=== PATIENT | female | born 1995 | race Caucasian/White ===

== ENCOUNTER 2016-10-04 20:07 | Emergency (ER) | payer OTHER ==
--- NOTE | 2016-10-04 21:24 | ED CLINICAL REPORT ---
Clinical Report - Physicians/Mid Levels [facility] [address] [address] 10/04/2016 20:08 Patient: KEESHA CAN Time Seen: 21:00; initial patient contact. Arrived- By private vehicle. Historian- patient. HISTORY OF PRESENT ILLNESS Chief Complaint: SORE THROAT. This started about 3 days ago and is still present (persistent). It was gradual in onset. Pain described as mild. The patient has had a sore throat, nasal congestion and a nasal discharge. Similar symptoms previously: None. Recent medical care: Not recently seen/assessed. REVIEW OF SYSTEMS No fever, chest pain, nausea or vomiting. She has had nasal congestion, a runny nose, a cough, difficulty breathing and sinus pain. All systems otherwise negative, except as recorded above. PAST HISTORY Negative. Surgeries: . Medications: Thera M Plus Oral. Allergies: Codeine.(swelling). SOCIAL HISTORY Never smoker. No alcohol use or drug use. ADDITIONAL NOTES The nursing notes have been reviewed. PHYSICAL EXAM Vital Signs: 10/04/2016 20:19 BP: 135/79. HR: 96. RR: 12. O2 saturation: 99%. Temp: 98.9 F. Pain level now: 3/10. Have been reviewed as normal. Appearance: Alert. No acute distress. Head: Tenderness present to percussion/palpation of the sinuses: mild right and left frontal tenderness, maxillary tenderness. Normal external inspection. ENT: Ears normal. Nose normal. Mild generalized pharyngeal erythema with right tonsillar swelling and left tonsillar swelling. No trismus present. The mucous membranes are not dry. Neck: No adenopathy. CVS: Normal heart rate and rhythm. Heart sounds normal. Respiratory: No respiratory distress. Breath sounds normal. Skin: No rash. Neuro: Oriented X 3. PROGRESS AND PROCEDURES Course of Care: DuoNeb nebulizer treatment (1 unit dose) given. Physical exam findings are improved. Symptoms much better. Disposition: Discharged home in good and improved condition. Condition: good. CLINICAL IMPRESSION Acute maxillary and frontal sinusitis INSTRUCTIONS Do not work tomorrow. Your Current Medications: CONTINUE TAKING THE FOLLOWING MEDICATIONS: Thera M Plus Oral. Prescription Medications: Albuterol HFA oral inhaler: inhale 2 puffs every 4 hours as needed for wheezing, difficulty breathing or shortness of breath. Dispense one (1) unit. No refill. Azithromycin 500 mg tablets: take 1 orally every day for 2 days. No refills. (1st dose given in ED, start on 10/05/16) Follow-up: Follow up with your doctor in about three days. Call for an appointment. Screening today revealed the patient's blood pressure to be in the pre-hypertensive range. The patient should follow up with a primary care provider for blood pressure management. (Electronically signed by Favio Mckeon Dr. 10/05/2016 4:01)
--- NOTE | 2016-10-04 21:24 | ED CLINICAL REPORT ---
Clinical Report - Physicians/Mid Levels [facility] [address] [place] [place] [address] 10/04/2016 20:08 Patient: KEESHA CAN Time Seen: 21:00; initial patient contact. Arrived- By private vehicle. Historian- patient. HISTORY OF PRESENT ILLNESS Chief Complaint: SORE THROAT. This started about 3 days ago and is still present (persistent). It was gradual in onset. Pain described as mild. The patient has had a sore throat, nasal congestion and a nasal discharge. Similar symptoms previously: None. Recent medical care: Not recently seen/assessed. REVIEW OF SYSTEMS No fever, chest pain, nausea or vomiting. She has had nasal congestion, a runny nose, a cough, difficulty breathing and sinus pain. All systems otherwise negative, except as recorded above. PAST HISTORY Negative. Surgeries: . Medications: Thera M Plus Oral. Allergies: Codeine.(swelling). SOCIAL HISTORY Never smoker. No alcohol use or drug use. ADDITIONAL NOTES The nursing notes have been reviewed. PHYSICAL EXAM Vital Signs: 10/04/2016 20:19 BP: 135/79. HR: 96. RR: 12. O2 saturation: 99%. Temp: 98.9 F. Pain level now: 3/10. Have been reviewed as normal. Appearance: Alert. No acute distress. Head: Tenderness present to percussion/palpation of the sinuses: mild right and left frontal tenderness, maxillary tenderness. Normal external inspection. ENT: Ears normal. Nose normal. Mild generalized pharyngeal erythema with right tonsillar swelling and left tonsillar swelling. No trismus present. The mucous membranes are not dry. Neck: No adenopathy. CVS: Normal heart rate and rhythm. Heart sounds normal. Respiratory: No respiratory distress. Breath sounds normal. Skin: No rash. Neuro: Oriented X 3. PROGRESS AND PROCEDURES Course of Care: DuoNeb nebulizer treatment (1 unit dose) given. Physical exam findings are improved. Symptoms much better. Disposition: Discharged home in good and improved condition. Condition: good. CLINICAL IMPRESSION Acute maxillary and frontal sinusitis INSTRUCTIONS Do not work tomorrow. Your Current Medications: CONTINUE TAKING THE FOLLOWING MEDICATIONS: Thera M Plus Oral. Prescription Medications: Albuterol HFA oral inhaler: inhale 2 puffs every 4 hours as needed for wheezing, difficulty breathing or shortness of breath. Dispense one (1) unit. No refill. Azithromycin 500 mg tablets: take 1 orally every day for 2 days. No refills. (1st dose given in ED, start on 10/05/16) Follow-up: Follow up with your doctor in about three days. Call for an appointment. Screening today revealed the patient's blood pressure to be in the pre-hypertensive range. The patient should follow up with a primary care provider for blood pressure management. (Electronically signed by Favio Mckeon Dr. 10/05/2016 4:01)
--- NOTE | 2016-10-04 21:24 | ED ORDER SUMMARY ---
..... Patient: KEESHA CAN OrderSheet [facility] VisitID: [id number] [place] [address] 21y, F Registration Date/Time: 10/04/2016 ORDER SHEET Weight: 86.1 kg (stated) Allergies: Codeine GENERAL ORDERS: RT Evaluation Stat (20:30 10/04/2016 JQuivey R.N. per protocol) (20:49 [facility] MEDICATION ORDERS: DuoNeb Neb Tx 1 unit dose (NOW) (20:31 10/04/2016 JQuivey R.N. per protocol) (20:51 JQuivey R.N.) Azithromycin PO 500 mg (NOW) (21:24 10/04/2016 Grant Jaimes) (Ack 21:32 JQuivey R.N.) (21:38 JQuivey R.N.) IV FLUIDS: ORDER SHEET NOTES: [Electronically signed by Darshan Jones R.N. (22:43 10/04/2016)] [Electronically signed by Favio Mckeon Dr. (04:01 10/05/2016)] [Electronically locked/signed by Darshan Jones R.N. (22:43 10/04/2016)]
--- NOTE | 2016-10-04 21:24 | ED NURSING NOTES ---
Clinical Report - Nurses [facility] [address] [place] [address] 10/04/2016 20:08 Patient: KEESHA CAN TRIAGE Triage time 20:20. Acuity: LEVEL 3. Chief Complaint: SORE THROAT. --20:26 Sheriff Dominguez R.N. 20:19 10/04/16. BP: 135/79. HR: 96. RR: 12. O2 saturation: 99%. Temp: 98.9 F. Pain level now: 07/18. --20:26 Sheriff Dominguez R.N. Weight: 86.1 kg stated. Height/Length: 69 inches Per Patient. BMI: 28.1. --20:19 Sheriff Dominguez R.N. Medications Thera M Plus Oral. --20:24 Sheriff Dominguez R.N. Allergies Codeine.(swelling) --20:24 Sheriff Dominguez R.N. History Arrived by private vehicle. Historian: patient. Accompanied by mother. This started yesterday. ( Productive cough with thick greenish secretions for 3 day. Sore throat followed yesterday. Wheezy and short of breath.). SURGERY HX: has been performed twice. SOCIAL HX: Never smoker. No alcohol use or drug use. FALL RISK ASSESSMENT: Fall risk assessment completed. No fall risk identified. NUTRITIONAL RISK ASSESSMENT: The nutritional risk assessment revealed no deficiencies. FUNCTIONAL ASSESSMENT: Functional assessment: no impairments noted. LEARNING NEEDS ASSESSMENT: The learning needs assessment revealed no barriers. SKIN INTEGRITY ASSESSMENT: Skin integrity risk assessment completed. No skin integrity risk identified. --20:26 Sheriff Dominguez R.N. PROBLEMS: None. --20:25 Sheriff Dominguez R.N. Interventions ID band on patient. --20:26 Sheriff Dominguez R.N. PHYSICAL ASSESSMENT Ambulatory to room. GENERAL / NEURO / PSYCH: Alert. Oriented X 4. Appears in no acute distress. Appears in pain. HEENT: Mucous membranes are pink. RESPIRATORY: Respirations not labored. SKIN: Skin is warm and dry. --20:26 Sheriff Dominguez R.N. NURSING PROGRESS NOTES Head of bed elevated. Two patient identifiers checked. Call light placed in reach. Side rails up x 2. Bed placed in lowest position. Brakes of bed on. --20:26 Sheriff Dominguez R.N. 20:34 10/04/2016 Duoneb (Ipratropium-Albuterol) Neb TX 1 unit dose given. Given by the respiratory therapist. Allergies verified and confirmed 5 rights. --20:52 Darshan Jones R.N. <<STRICKEN ENTRY-- 20:44 10/04/2016 Duoneb (Ipratropium-Albuterol) Neb TX 1 unit dose given. Given by the respiratory therapist. Allergies verified and confirmed 5 rights. --20:51 Darshan Jones R.N. --END STRIKE>> Correction. --20:52 Darshan Jones R.N. 21:34 10/04/2016 Azithromycin PO 500 mg given. Allergies verified and confirmed 5 rights. --21:38 Darshan Jones R.N. 21:37. The patient is calm and resting quietly. GENERAL / NEURO / PSYCH: Alert. Oriented X 4. RESPIRATORY: No respiratory distress. SKIN: Skin is warm and dry. --21:39 Darshan Jones R.N. DISPOSITION / DISCHARGE Departure time: 21:39. Condition at departure: stable. No learning barriers present. Discharge instructions provided and reviewed with the patient. Reviewed medication(s) side effects, precautions, dosing and course information. Prescription(s) given to the patient. Patient verbalized understanding. Written instructions provided in [place]. The patient was discharged home and accompanied by parent. She left the Emergency Department ambulatory and via private vehicle. Parent driving. FALL RISK ASSESSMENT: Fall risk assessment completed. No fall risk identified. --21:39 Darshan Jones R.N. 21:34 10/04/16. BP: 108/61. HR: 96. RR: 18. O2 saturation: 96% on room air. Pain level now: 05/20. --21:39 Darshan Jones R.N. Locked/Released at 10/04/2016 22:43 by Darshan Jones R.N.
--- NOTE | 2016-10-04 21:24 | ED ORDER SUMMARY ---
..... Patient: KEESHA CAN OrderSheet [facility] VisitID: [id number] [place] [address] 21y, F Registration Date/Time: 10/04/2016 ORDER SHEET Weight: 86.1 kg (stated) Allergies: Codeine GENERAL ORDERS: RT Evaluation Stat (20:30 10/04/2016 JQuivey R.N. per protocol) (20:[facility] MEDICATION ORDERS: DuoNeb Neb Tx 1 unit dose (NOW) (20:31 10/04/2016 JQuivey R.N. per protocol) (20:51 JQuivey R.N.) Azithromycin PO 500 mg (NOW) (21:24 10/04/2016 Grant Jaimes) (Ack 21:32 JQuivey R.N.) (21:38 JQuivey R.N.) IV FLUIDS: ORDER SHEET NOTES: [Electronically signed by Darshan Jones R.N. (22:43 10/04/2016)] [Electronically signed by Favio Mckeon Dr. (04:01 10/05/2016)] [Electronically locked/signed by Darshan Jones R.N. (22:43 10/04/2016)]
--- NOTE | 2016-10-05 04:01 | ED DISCHARGE INSTRUCTIONS ---
Patient: KEESHA CAN General Instructions [facility] VisitID: [id number] [place] [address] 21y, F Registration Date/Time: 10/04/2016 Acute maxillary and frontal sinusitis INSTRUCTIONS Do not work tomorrow. Your Current Medications: CONTINUE TAKING THE FOLLOWING MEDICATIONS: Thera M Plus Oral. Prescription Medications: Albuterol HFA oral inhaler: inhale 2 puffs every 4 hours as needed for wheezing, difficulty breathing or shortness of breath. Dispense one (1) unit. No refill. Azithromycin 500 mg tablets: take 1 orally every day for 2 days. No refills. (1st dose given in ED, start on 10/05/16) Follow-up: Follow up with your doctor in about three days. Call for an appointment. Screening today revealed the patient's blood pressure to be in the pre-hypertensive range. The patient should follow up with a primary care provider for blood pressure management. ADDITIONAL INFORMATION Sinusitis [Abx Tx] The sinuses are air-filled spaces within the bones of the face. They connect to the inside of the nose. Sinusitis is an inflammation of the tissue lining the sinus cavity. Sinus inflammation can occur during a cold or hay-fever (allergies to pollens and other particles in the air) and cause symptoms of sinus congestion and fullness. A sinus infection causes fever, headache and facial pain. There is usually green or yellow drainage from the nose or into the back of the throat (post-nasal drip). Antibiotics are prescribed to treat this condition. Home Care: Drink plenty of water, hot tea, and other liquids to stay well hydrated. This thins the mucus and promotes sinus drainage. Apply heat to the painful areas of the face. Use a towel soaked in hot water. Or, advisory software engineer the shower and direct the hot spray onto your face. This is a good way to inhale warm water vapor and get heat on your face at the same time. (Cover your mouth and nose with your hands so you can still breathe as you do this.) Use a vaporizer with products such as Vicks VapoRub (contains menthol) at night. Suck on peppermint, menthol or eucalyptus hard candies during the day. An expectorant containing guaifenesin (such as Robitussin), helps to thin the mucus and promote drainage from the sinuses. Hdnf-xwo-ydewjrp decongestants may be used unless a similar medicine was prescribed. Nasal sprays work the fastest. Use one that contains phenylephrine (Tj-synephrine, Sinex and others) or oxymetazoline (Afrin). First blow the nose gently to remove mucus, then apply the drops. Do not use these medicines more often than directed on the label or for more than three days or symptoms may worsen. You may also use tablets containing pseudoephedrine (Sudafed). Many sinus remedies combine ingredients, which may increase side effects. Read the labels or ask the pharmacist for help. NOTE: Persons with high blood pressure should not use decongestants. They can raise blood pressure. Antihistamines are useful if allergies are a cause of your sinusitis. The mildest one is chlorpheniramine (available without a prescription). The dose for adults is 8-12mg three times a day. [NOTE: Do not use chlorpheniramine if you have glaucoma or if you are a man with trouble urinating due to an enlarged prostate.] Claritin (loratidine) is an antihistamine that causes less drowsiness and is a good alternative for daytime use. Do not use nasal rinses or irrigation during an acute sinus infection, unless advised by your doctor. Rinsing may spread the infection to other sinuses. You may use acetaminophen (Tylenol) or ibuprofen (Motrin, Advil) to control pain, unless another pain medicine was prescribed. [ NOTE: If you have chronic liver or kidney disease or ever had a stomach ulcer, talk with your doctor before using these medicines.] (Aspirin should never be used in anyone under 18 years of age who is ill with a fever. It may cause severe liver damage.) Finish the full course, even if you are feeling better after a few days. Follow Up with your doctor or this facility in one week or as instructed by our staff if not improving. Get Prompt Medical Attention if any of the following occur: Facial pain or headache becomes more severe Stiff neck Unusual drowsiness or confusion, or not acting like your normal self Swelling of the forehead or eyelids Vision problems including blurred or double vision Fever of 100.4F (38C) or higher, or as directed by your healthcare provider Seizure Albuterol Sulfate Pressurized inhalation, suspension What is this medicine? ALBUTEROL (al BYOO ter ole) is a bronchodilator. It helps open up the airways in your lungs to make it easier to breathe. This medicine is used to treat and to prevent bronchospasm. How should I use this medicine? This medicine is for inhalation through the mouth. Follow the directions on your prescription label. Take your medicine at regular intervals. Do not use more often than directed. Make sure that you are using your inhaler correctly. Ask you doctor or health care provider if you have any questions. Talk to your net developer software engineer c regarding the use of this medicine in children. Special care may be needed. What side effects may I notice from receiving this medicine? Side effects that you should report to your doctor or health career center advisor as soon as possible: allergic reactions like skin rash, itching or hives, swelling of the face, lips, or tongue breathing problems chest pain feeling faint or lightheaded, falls high blood pressure irregular heartbeat fever muscle cramps or weakness pain, tingling, numbness in the hands or feet vomiting Side effects that usually do not require medical attention (report to your doctor or health career center advisor if they continue or are bothersome): cough difficulty sleeping headache nervousness or trembling stomach upset stuffy or runny nose throat irritation unusual taste What may interact with this medicine? anti-infectives like chloroquine and pentamidine caffeine cisapride diuretics medicines for colds medicines for depression or for emotional or psychotic conditions medicines for weight loss including some herbal products methadone some antibiotics like clarithromycin, erythromycin, levofloxacin, and linezolid some heart medicines steroid hormones like dexamethasone, cortisone, hydrocortisone theophylline thyroid hormones What if I miss a dose? If you miss a dose, use it as soon as you can. If it is almost time for your next dose, use only that dose. Do not use double or extra doses. Where should I keep my medicine? Keep out of the reach of children. Store at room temperature between 15 and 30 degrees C (59 and 86 degrees F). The contents are under pressure and may burst when exposed to heat or flame. Do not freeze. This medicine does not work as well if it is too cold. Throw away any unused medicine after the expiration date. Inhalers need to be thrown away after the labeled number of puffs have been used or by the expiration date; whichever comes first. Ventolin HFA should be thrown away 12 months after removing from foil pouch. Check the instructions that come with your medicine. What should I tell my health care provider before I take this medicine? They need to know if you have any of the following conditions: diabetes heart disease or irregular heartbeat high blood pressure pheochromocytoma seizures thyroid disease an unusual or allergic reaction to albuterol, levalbuterol, sulfites, other medicines, foods, dyes, or preservatives or trying to get breast-feeding What should I watch for while using this medicine? Tell your doctor or health career center advisor if your symptoms do not improve. Do not use extra albuterol. If your asthma or bronchitis gets worse while you are using this medicine, call your doctor right away. If your mouth gets dry try chewing sugarless gum or sucking hard candy. Drink water as directed. Azithromycin Oral tablet What is this medicine? AZITHROMYCIN (az ith zaynab MYE sin) is a macrolide antibiotic. It is used to treat or prevent certain kinds of bacterial infections. It will not work for colds, flu, or other viral infections. How should I use this medicine? Take this medicine by mouth with a full glass of water. Follow the directions on the prescription label. The tablets can be taken with food or on an empty stomach. If the medicine upsets your stomach, take it with food. Take your medicine at regular intervals. Do not take your medicine more often than directed. Take all of your medicine as directed even if you think your are better. Do not skip doses or stop your medicine early. Talk to your net developer software engineer c regarding the use of this medicine in children. Special care may be needed. What side effects may I notice from receiving this medicine? Side effects that you should report to your doctor or health career center advisor as soon as possible: allergic reactions like skin rash, itching or hives, swelling of the face, lips, or tongue confusion, nightmares or hallucinations dark urine difficulty breathing hearing loss irregular heartbeat or chest pain pain or difficulty passing urine redness, blistering, peeling or loosening of the skin, including inside the mouth white patches or sores in the mouth yellowing of the eyes or skin Side effects that usually do not require medical attention (report to your doctor or health career center advisor if they continue or are bothersome): diarrhea dizziness, drowsiness headache stomach upset or vomiting tooth discoloration vaginal irritation What may interact with this medicine? Do not take this medicine with any of the following medications: lincomycin This medicine may also interact with the following medications: amiodarone antacids cyclosporine digoxin magnesium nelfinavir phenytoin warfarin What if I miss a dose? If you miss a dose, take it as soon as you can. If it is almost time for your next dose, take only that dose. Do not take double or extra doses. Where should I keep my medicine? Keep out of the reach of children. Store at room temperature between 15 and 30 degrees C (59 and 86 degrees F). Throw away any unused medicine after the expiration date. What should I tell my health care provider before I take this medicine? They need to know if you have any of these conditions: kidney disease liver disease irregular heartbeat or heart disease an unusual or allergic reaction to azithromycin, erythromycin, other macrolide antibiotics, foods, dyes, or preservatives or trying to get breast-feeding What should I watch for while using this medicine? Tell your doctor or health career center advisor if your symptoms do not improve. Do not treat diarrhea with over the counter products. Contact your doctor if you have diarrhea that lasts more than 2 days or if it is severe and watery. This medicine can make you more sensitive to the sun. Keep out of the sun. If you cannot avoid being in the sun, wear protective clothing and use sunscreen. Do not use sun lamps or tanning beds/booths. You have been given the following additional information: Sinusitis, Abx Tx Albuterol Sulfate Pressurized inhalation, suspension Azithromycin Oral tablet Do not work tomorrow. (Electronically signed by Favio Mckeon Dr. 10/05/2016 4:01)
--- NOTE | 2016-10-05 04:01 | ED MED RECONCILIATION SUMMARY ---
Patient: KEESHA CAN Medication Reconciliation Report [facility] VisitID: [id number] [address] [address] 21y, F Registration Date/Time: 10/04/2016 Weight: 86.1 kg Height/Length: 69 in. BMI: 28.1 ALLERGIES: Codeine The patient's Home Medications are listed below: CONTINUE TAKING THE FOLLOWING MEDICATIONS: Thera M Plus Oral The source(s) of the original Home Medication information: Not obtained. The following Medications were given to the patient in the Emergency Department: Duoneb [Neb Tx] Neb TX, administered: 10/04/2016 8:34:00 PM Duoneb [Neb Tx] Neb TX 1 unit dose, administered: 10/04/2016 8:34:00 PM Azithromycin [PO] PO 500 mg, administered: 10/04/2016 9:34:00 PM The following Medications were prescribed to the patient: Albuterol HFA oral inhaler: inhale 2 puffs every 4 hours as needed for wheezing, difficulty breathing or shortness of breath. Dispense one (1) unit. No refill. -- Favio Mckeon Dr. Azithromycin 500 mg tablets: take 1 orally every day for 2 days. No refills.(1st dose given in ED, start on 10/05/16) -- Favio Mckeon Dr.
--- NOTE | 2016-10-05 04:01 | ED MAR SUMMARY ---
..... Medication Administration Record [facility] [address] [place] [address] Patient: KEESHA CAN Visit ID: [id number] 21y, F Weight: 86.1 kg Height/Length: 69 in BMI: 28.1 ALLERGIES: Codeine Given 20:10/04/2016 Frankie Cosby, Medication Administered: DUONEB [NEB TX] (IPRATROPIUM-ALBUTEROL), Dose: Neb TX. Medication Ordered: DuoNeb Neb Tx 1 unit dose (NOW). Given 10/04/2016 Darshan Jones, R.N. Medication Administered: DUONEB [NEB TX] (IPRATROPIUM-ALBUTEROL), Dose: 1 unit dose Neb TX. Medication Ordered: DuoNeb Neb Tx 1 unit dose (NOW). Given 10/04/2016 Darshan Jones, R.N. Medication Administered: AZITHROMYCIN [PO], Dose: 500 mg PO. Medication Ordered: Azithromycin PO 500 mg (NOW).
--- NOTE | 2016-10-05 04:01 | ED MED RECONCILIATION SUMMARY ---
Patient: KEESHA CAN Medication Reconciliation Report [facility] VisitID: [id number] [address] [address] 21y, F Registration Date/Time: 10/04/2016 Weight: 86.1 kg Height/Length: 69 in. BMI: 28.1 ALLERGIES: Codeine The patient's Home Medications are listed below: CONTINUE TAKING THE FOLLOWING MEDICATIONS: Thera M Plus Oral The source(s) of the original Home Medication information: Not obtained. The following Medications were given to the patient in the Emergency Department: Duoneb [Neb Tx] Neb TX, administered: 10/04/2016 8:34:00 PM Duoneb [Neb Tx] Neb TX 1 unit dose, administered: 10/04/2016 8:34:00 PM Azithromycin [PO] PO 500 mg, administered: 10/04/2016 9:34:00 PM The following Medications were prescribed to the patient: Albuterol HFA oral inhaler: inhale 2 puffs every 4 hours as needed for wheezing, difficulty breathing or shortness of breath. Dispense one (1) unit. No refill. -- Favio Mckeon Dr. Azithromycin 500 mg tablets: take 1 orally every day for 2 days. No refills.(1st dose given in ED, start on 10/05/16) -- Favio Mckeon Dr.
--- NOTE | 2016-10-05 04:01 | ED MAR SUMMARY ---
..... Medication Administration Record [facility] [address] [place] [address] Patient: KEESHA CAN Visit ID: [id number] 21y, F Weight: 86.1 kg Height/Length: 69 in BMI: 28.1 ALLERGIES: Codeine Given 20:10/04/2016 Frankie Cosby, Medication Administered: DUONEB [NEB TX] (IPRATROPIUM-ALBUTEROL), Dose: Neb TX. Medication Ordered: DuoNeb Neb Tx 1 unit dose (NOW). Given 10/04/2016 Darshan Jones, R.N. Medication Administered: DUONEB [NEB TX] (IPRATROPIUM-ALBUTEROL), Dose: 1 unit dose Neb TX. Medication Ordered: DuoNeb Neb Tx 1 unit dose (NOW). Given 10/04/2016 Darshan Jones, R.N. Medication Administered: AZITHROMYCIN [PO], Dose: 500 mg PO. Medication Ordered: Azithromycin PO 500 mg (NOW).
== END 2016-10-04 21:39 | disposition home or self-care (01) ==
LOC: ED SRH 20:07
DX: J01.00 Acute maxillary sinusitis, unspecified (principal); J01.10 Acute frontal sinusitis, unspecified; Z88.5 Allergy status to narcotic agent